=== PATIENT | female | born 1990 | race Caucasian/White ===

== ENCOUNTER 2016-09-27 08:48 | Emergency (ER) | payer MEDICAID, OTHER ==
[~2016-09-27] VITALS: Ht 172.7 cm; Wt 95.0 kg
[~2016-09-27 08:48] MED LIST: LAMO25 PO; LURA20TA PO; SULF1TAB23 PO
[2016-09-27 08:49] VITALS: BP 103/66; PULSE 87; RESP 14; TEMP 98.3; O2SAT 99
--- NOTE | 2016-09-27 09:19 | PD ---
HPI Chief Complaint: Complaint Time Seen by Provider: 09:01 Travel History International Travel<30 days: No Contact w/Intl Traveler<30days: No Traveled to known affect area: No History of Present Illness HPI 26-year-old female presents to emergency Department with 5 day history of dysuria and frequency in urination. Patient also reports vaginal discharge since yesterday. Patient states she did have unprotected sex over a week ago. Denies fever, chills, nausea, vomiting, or flank pain. She is unsure whether she could be . He states the vaginal discharge is foul smelling. Patient states she had some "leftover ciprofloxacin" which she started 2 days ago. Patient also took Azo for her dysuria. She has no known drug allergies. PFSH Past Medical History Hx Anticoagulant Therapy: No Anxiety: No Depression: Yes Cardiovascular Problems: No Chemotherapy: No Cerebrovascular Accident: No Diabetes: No Diminished Hearing: No Endocrine: No Genitourinary: No Immune Disorder: No Musculoskeletal: No Neurologic: No Respiratory: No Immunizations Current: No ?: Unknown LMP: 09/04/16 : 1 Para: 0 Dilation and Curettage (D&C): Yes (11/09/15) Past Surgical History Hysterectomy: No Other Surgery: No Social History Alcohol Use: No Tobacco Use: No Substance Use: No (DENIES) Allergies-Medications (Allergen,Severity, Reaction): Coded Allergies: No Known Allergies (Unverified , 08/12/16) Reported Meds & Prescriptions Reported Meds & Active Scripts Active Diflucan (Fluconazole) 150 Mg Tab 150 Mg PO ONCE Cephalexin 500 Mg Cap 500 Mg PO Q8H Sulfamethoxazole-Trimethoprim 800-160 Mg Tab 1 Tab PO BID Lamictal (Lamotrigine) 25 Mg Tab 25 Mg PO DAILY Reported Latuda (Lurasidone) 20 Mg Tab 20 Mg PO DAILY Review of Systems Except as stated in HPI: all other systems reviewed are Neg General / Constitutional: No: Fever Eyes: No: Visual changes HENT: No: Headaches Cardiovascular: No: Chest Pain or Discomfort Respiratory: No: Shortness of Breath Gastrointestinal: No: Abdominal Pain Genitourinary: Positive: Urgency, Frequency, Dysuria, Discharge, No: Pelvic Pain, Flank Pain, Vaginal Bleeding Musculoskeletal: No: Pain Skin: No Rash Neurologic: No: Weakness Psychiatric: No: Depression Endocrine: No: Polydipsia Hematologic/Lymphatic: No: Easy Bruising Physical Exam Narrative GENERAL: Patient appears no acute distress. SKIN: Warm and dry. Normal color. Turgor. No rash. HEAD: Atraumatic. Normocephalic. EYES: Pupils equal and round. No scleral icterus. No injection or drainage. ENT: No nasal bleeding or discharge. Mucous membranes pink and moist. Pharynx is clear. Airway is patent. NECK: Trachea midline. Supple and nontender. CARDIOVASCULAR: Regular rate and rhythm. RESPIRATORY: No accessory muscle use. Clear to auscultation. Breath sounds equal bilaterally. GASTROINTESTINAL: Abdomen soft, non-tender, nondistended. Hepatic and splenic margins not palpable. No CVA tenderness. GENITALIA: MUSCULOSKELETAL: Extremities without clubbing, cyanosis, or edema. No obvious deformities. NEUROLOGICAL: Awake and alert. No obvious cranial nerve deficits. Motor grossly within normal limits. Five out of 5 muscle strength in the arms and legs. Normal speech. PSYCHIATRIC: Appropriate mood and affect; insight and judgment normal. Data Data Last Documented VS Vital Signs Date Time Temp Pulse Resp B/P Pulse Ox O2 Delivery O2 Flow Rate FiO2 09/27/16 09:02 98 18 09/27/16 08:49 98.3 103/66 99 Orders Gc And Chlamydia Pcr (09/27/16 08:54) Wet Prep Profile (09/27/16 08:54) Urinalysis - C+S If Indicated (09/27/16 08:54) Ed Urine Pregnancytest Poc (09/27/16 08:54) Azithromycin Powd Pack (Zithromax Powd P (09/27/16 09:30) Lidocaine 1% Inj (50 Ml) (Xylocaine 1% I (09/27/16 09:30) Ceftriaxone Inj (Rocephin Inj) (09/27/16 09:30) Urine Culture (09/27/16 09:10) Labs Laboratory Tests Test 09/27/16 09/27/16 09:10 09:30 Urine Color DARK-YELLOW Urine Turbidity CLOUDY Urine pH 7.5 Urine Specific [place] 1.011 Urine Protein NEG mg/dL Urine Glucose (UA) NEG mg/dL Urine Ketones NEG mg/dL Urine Occult Blood TRACE Urine Nitrite POS Urine Bilirubin NEG Urine Urobilinogen 2.0 MG/DL Urine Leukocyte Esterase LARGE Urine RBC 13 /hpf Urine WBC 40 /hpf Urine Squamous Epithelial 5 /hpf Cells Urine Transitional Epithelial 1 /hpf Cells Urine Amorphous Sediment RARE Urine Bacteria MOD /hpf Urine Yeast (Budding) RARE Microscopic Urinalysis Comment CULTURE INDICATED Clue Cells (Wet Prep) NONE SEEN Vaginal Trichomonas (Wet Prep) NONE SEEN Vaginal Yeast (Wet Prep) PRESENT MDM Medical Decision Making Medical Screen Exam Complete: Yes Emergency Medical Condition: Yes Differential Diagnosis Urinary tract infection. Bacterial vaginosis. STD. GC/Chlamydia. Trichomoniasis. Narrative Course Patient is medically stable at time of exam. Urine is performed. Urinalysis is sent to the lab. Pelvic exam is performed with collection of GC chlamydia and Trichomonas wet prep swab. Patient is given Rocephin 1 g IM. Patient is given azithromycin 1000 mg by mouth 1. Urine is suggestive of urinary tract infection. Culture is pending. Wet prep shows candidiasis. GC chlamydia is pending. Patient will be continued on cephalexin 500 mg 3 times a day 7 days. Patient is given Diflucan 150 mg one now and repeat in one week if necessary. Patient is referred to the [facility] or [facility] for follow-up. Diagnosis Primary Impression: Urinary tract infection Qualified Code: N30.00 - Acute cystitis without hematuria Additional Impressions: Vaginal candidiasis Possible exposure to STD Referrals: [facility] Dept. Patient Instructions: Dysuria (ED), General Instructions, Sexually Transmitted Diseases (ED), Vulvovaginal Candidiasis (ED) Additional Instructions: Patient is given Rocephin 1 g IM. Patient is given azithromycin 1000 mg by mouth 1. Urine is suggestive of urinary tract infection. Culture is pending. Wet prep shows candidiasis. GC chlamydia is pending. Patient will be continued on cephalexin 500 mg 3 times a day 7 days. Patient is given Diflucan 150 mg one now and repeat in one week if necessary. Patient is referred to the [facility] or [facility] for follow-up. Med/Other Pt SpecificInfo: Prescription(s) given Scripts Fluconazole (Diflucan)150 Mg [id number] Mg PO ONCE #1 TAB Ref 1 Prov:Chanda Sofia DO 09/27/16 Cephalexin 500 Mg [id number] Mg PO Q8H #21 CAP Prov:Chanda Sofia DO 09/27/16 Disposition: 01 DISCHARGE HOME Condition: Stable Femi Tamez Sep 27, 2016 09:18
[2016-09-27] MEDS ORDERED: LIDOCAINE HCL 1% 50 ML VIAL IM ONE (09:30)
[2016-09-27] MEDS ORDERED: AZITHROMYCIN PWD FOR SUSP 1 GM PACKET PO ONE (09:30)
[2016-09-27 09:50] LABS: BACTERIA, URINE MOD /hpf; BLOOD, URINE TRACE (NEG); COMMENT (UR) CULTURE INDICATED; CULTURE IF INDICATED CULTURE INDICATED; GLUCOSE,URINE NEG (NEG); KETONE, URINE NEG (NEG); PH, URINE 7.5 (5.0-8.5); SQUAMOUS EPITHELIAL CELL URINE 5 /hpf (0-5); TRANSITIONAL EPI CELLS, URINE 1 /hpf; URINE COLOR DARK-YELLOW (YELLW/STRAW)
[2016-09-27 09:59] LABS: NITRITE,URINE POS (NEG)
[2016-09-27] MEDS ORDERED: CEPH500C PO (10:27)
[2016-09-27] MEDS ORDERED: DIFL150T PO (10:27)
[2016-09-27] MEDS ORDERED: PHEN0.4T PO (10:49)
[2016-09-27 14:10] LABS: CHLAMYDIA PCR NOT DETECTED (NOT DETECT); NEISSERIA PCR NOT DETECTED (NOT DETECT)
== END 2016-09-27 10:53 | disposition home or self-care (01) ==
LOC: NEPD 08:48
DX: N30.00 Acute cystitis without hematuria (principal); B37.3 Candidiasis of vulva and vagina
CPT/HCPCS: 81001; 84703; 87086; 87210; 87491; 87591; 96372; 99284; J0696

== ENCOUNTER 2017-01-10 19:49 | Emergency (ER) | payer SELFPAY ==
[~2017-01-10] VITALS: Ht 172.7 cm; Wt 94.0 kg
[~2017-01-10 19:49] MED LIST changes: +CEPH500C PO; +DIFL150T PO; +PHEN0.4T PO
[2017-01-10 19:50] VITALS: BP 116/63; PULSE 83; RESP 15; TEMP 97.9; O2SAT 97
--- NOTE | 2017-01-10 20:13 | PD ---
HPI Chief Complaint: ENT Complaint Time Seen by Provider: 19:57 Travel History International Travel<30 days: No Contact w/Intl Traveler<30days: No Traveled to known affect area: No History of Present Illness HPI Patient is a 26-year-old female presenting to the emergency department for evaluation of an impacted ear wax bilaterally. She states that she used a home. To remove the wax from her left year, she states that after she used it she had pain in her ear. She also reports that she has a pressure-like feeling in her ears. She denies any fevers, chills, nasal congestion, headache, neck pain, sore throat. She reports that her ears get impacted frequently. She has been using peroxide and a special school that she got from the pharmacy. She denies any other complaints at this time. She has no significant past medical history. PFSH Past Medical History Medical History: Denies Significant Hx Hx Anticoagulant Therapy: No Anxiety: No Depression: Yes Cardiovascular Problems: No Chemotherapy: No Cerebrovascular Accident: No Diabetes: No Diminished Hearing: No Endocrine: No Gastrointestinal Disorders: No Genitourinary: Yes (UTI's) Immune Disorder: No Implanted Vascular Access Dvce: No Musculoskeletal: No Neurologic: No Respiratory: No Immunizations Current: No ?: Not LMP: CURRENT : 1 Para: 0 Dilation and Curettage (D&C): Yes (11/09/15) Past Surgical History Hysterectomy: No Other Surgery: No Social History Alcohol Use: Yes (TWICE WEEKLY) Tobacco Use: No Substance Use: No (DENIES) Allergies-Medications (Allergen,Severity, Reaction): Coded Allergies: No Known Allergies (Unverified , 01/10/17) Reported Meds & Prescriptions Reported Meds & Active Scripts Active Pyridium (Phenazopyridine HCl) 100 Mg Tab 100 Mg PO Q8HR Diflucan (Fluconazole) 150 Mg Tab 150 Mg PO ONCE Cephalexin 500 Mg Cap 500 Mg PO Q8H Sulfamethoxazole-Trimethoprim 800-160 Mg Tab 1 Tab PO BID Lamictal (Lamotrigine) 25 Mg Tab 25 Mg PO DAILY Reported Latuda (Lurasidone) 20 Mg Tab 20 Mg PO DAILY Review of Systems Except as stated in HPI: all other systems reviewed are Neg HENT: Positive: Other (earwax) Physical Exam Narrative GENERAL: Well-developed, well-nourished, alert female. Resting in no acute distress. EARS: Bilateral pinnae and external canals appear within normal limits. Cerumen impaction bilaterally. Tympanic membranes are not visualized. SKIN: Warm and dry. HEAD: Normocephalic. EYES: No scleral icterus. No injection or drainage. NECK: Supple, trachea midline. No JVD or lymphadenopathy. CARDIOVASCULAR: Regular rate and rhythm without murmurs, gallops, or rubs. RESPIRATORY: Breath sounds equal bilaterally. No accessory muscle use. GASTROINTESTINAL: Abdomen soft, non-tender, nondistended. MUSCULOSKELETAL: No cyanosis, or edema. BACK: Nontender without obvious deformity. No CVA tenderness. Data Data Last Documented VS Vital Signs Date Time Temp Pulse Resp B/P (MAP) Pulse Ox O2 Delivery O2 Flow Rate FiO2 01/10/17 19:50 97.9 83 15 116/63 (80) 97 Room Air MDM Medical Decision Making Medical Screen Exam Complete: Yes Emergency Medical Condition: No Interpretation(s) Vital Signs Date Time Temp Pulse Resp B/P (MAP) Pulse Ox O2 Delivery O2 Flow Rate FiO2 01/10/17 19:50 97.9 83 15 116/63 (80) 97 Room Air Differential Diagnosis Otitis media versus otitis externa versus cerumen impaction versus other Narrative Course Patient is a 26 year old female that presented for evaluation of bilateral cerumen impaction. She had been using [id number] kit, this caused pain in the left ear canal. There is cerumen impaction bilaterally, attempted to remove cerumen with curette. At this point patient was encouraged to follow-up with your nose and throat or her primary care provider for irrigation. She was advised to ENT would be preferable. She was encouraged to return to emergency department for any new or worsening symptoms such as increased pain, fevers etc. A medical screening exam was performed: At the time of evaluation the presenting medical condition was determined not to be of an emergent nature. The patient was given the option of receiving additional care, but declined. Patient was given options for additional community resources from which to obtain care. The Patient Has Been advised to seek medical attention for their presenting complaint. The patient has been advised to return to the ER at any time if an emergent condition develops. Diagnosis Primary Impression: Encounter for medical screening examination Condition: Stable Sidra Jorge [facility] Jan 10, 2017 20:13
== END 2017-01-10 20:15 | disposition left against medical advice (07) ==
LOC: NEPK 19:49
DX: H61.23 Impacted cerumen, bilateral (principal)
CPT/HCPCS: 99281

== ENCOUNTER 2017-04-12 19:09 | Emergency (ER) | payer SELFPAY ==
[2017-04-12 20:56] LABS: AUTOMATED NEUTROPHIL # 9.5 TH/MM3 (1.8-7.7); BASOPHIL # 0.1 TH/MM3 (0-0.2); BASOPHIL % 0.4 % (0.0-2.0); EOSINOPHIL # 0.5 TH/MM3 (0-0.4); EOSINOPHIL % 3.6 % (0.0-4.0); HEMATOCRIT 41.5 % (35.0-46.0); HEMO FLAGS DIFF FINAL; HEMOGLOBIN 13.8 GM/DL (11.6-15.3); LYMPH % 17.8 % (9.0-44.0); LYMPHOCYTE # 2.4 TH/MM3 (1.0-4.8); MEAN CELL VOLUME 85.4 FL (80.0-100.0); MEAN CORPUSCULAR HEMOGLOBIN 28.3 PG (27.0-34.0); MEAN CORPUSCULAR HGB CONC 33.2 % (32.0-36.0); MONO % 6.9 % (0.0-8.0); MONOCYTE # 0.9 TH/MM3 (0-0.9); NEUT % 71.3 % (16.0-70.0); PLATELET COUNT 293 TH/MM3 (150-450); RED BLOOD COUNT 4.86 MIL/MM3 (4.00-5.30); RED CELL DISTRIBUTION WIDTH 13.8 % (11.6-17.2); WHITE BLOOD COUNT 13.3 TH/MM3 (4.0-11.0)
[2017-04-12 21:16] LABS: ALBUMIN 3.9 GM/DL (3.4-5.0); ANION GAP 5 MEQ/L (5-15); AST (GOT) 18 U/L (15-37); BLOOD UREA NITROGEN 13 MG/DL (7-18); CHLORIDE 105 MEQ/L (98-107); CREATININE 0.95 MG/DL (0.50-1.00); GLOMERULAR FILTRATION RATE 71 ML/MIN (>89); GLUCOSE,RANDOM 69 MG/DL (74-106); POTASSIUM 3.5 MEQ/L (3.5-5.1); SODIUM (NA) 138 MEQ/L (136-145)
[2017-04-12 21:17] LABS: ALT (GPT) 27 U/L (10-53)
[2017-04-12 21:19] LABS: ALKALINE PHOSPHATASE 120 U/L (45-117); TOTAL BILIRUBIN ADULT 0.2 MG/DL (0.2-1.0); TOTAL PROTEIN 7.7 GM/DL (6.4-8.2)
== END 2017-04-12 22:00 | disposition home or self-care (01) ==
LOC: NEPD 19:09
DX: J40 Bronchitis, not specified as acute or chronic (principal); F32.9 Major depressive disorder, single episode, unspecified; Z79.899 Other long term (current) drug therapy
CPT/HCPCS: 71046; 80053; 84703; 85025; 87081; 87804; 87804-59; 87880; 99284

== ENCOUNTER 2017-04-14 14:04 | Emergency (ER) | payer SELFPAY ==
[2017-04-14 14:55] LABS: AUTOMATED NEUTROPHIL # 15.1 TH/MM3 (1.8-7.7); BASOPHIL # 0.1 TH/MM3 (0-0.2); BASOPHIL % 0.3 % (0.0-2.0); EOSINOPHIL % 0.3 % (0.0-4.0); HEMATOCRIT 39.8 % (35.0-46.0); HEMO FLAGS DIFF FINAL; HEMOGLOBIN 13.5 GM/DL (11.6-15.3); LYMPH % 7.7 % (9.0-44.0); LYMPHOCYTE # 1.4 TH/MM3 (1.0-4.8); MEAN CELL VOLUME 86.3 FL (80.0-100.0); MEAN CORPUSCULAR HEMOGLOBIN 29.3 PG (27.0-34.0); MEAN PLATELET VOLUME 8.1 FL (7.0-11.0); MONO % 5.3 % (0.0-8.0); MONOCYTE # 0.9 TH/MM3 (0-0.9); NEUT % 86.4 % (16.0-70.0); PLATELET COUNT 268 TH/MM3 (150-450); RED BLOOD COUNT 4.61 MIL/MM3 (4.00-5.30); RED CELL DISTRIBUTION WIDTH 14.3 % (11.6-17.2); WHITE BLOOD COUNT 17.5 TH/MM3 (4.0-11.0)
[2017-04-14 15:05] LABS: BACTERIA, URINE FEW /hpf; BILIRUBIN, URINE NEG (NEG); BLOOD, URINE NEG (NEG); COMMENT (UR) CULT NOT INDICATED; CULTURE IF INDICATED CULT NOT INDICATED; GLUCOSE,URINE NEG (NEG); KETONE, URINE NEG (NEG); NITRITE,URINE NEG (NEG); PH, URINE 6.5 (5.0-8.5); SQUAMOUS EPITHELIAL CELL URINE 8 /hpf (0-5); URINE COLOR LIGHT-YELLOW (YELLW/STRAW); URINE LEUKOCYTE ESTERASE SMALL (NEG)
[2017-04-14 15:19] LABS: ANION GAP 7 MEQ/L (5-15); BICARBONATE 26.8 MEQ/L (21.0-32.0); BLOOD UREA NITROGEN 10 MG/DL (7-18); CALCIUM 9.1 MG/DL (8.5-10.1); CHLORIDE 104 MEQ/L (98-107); CREATININE 0.92 MG/DL (0.50-1.00); GLOMERULAR FILTRATION RATE 74 ML/MIN (>89); GLUCOSE,RANDOM 99 MG/DL (74-106); POTASSIUM 4.1 MEQ/L (3.5-5.1); SODIUM (NA) 138 MEQ/L (136-145)
[2017-04-14] MEDS: RESP: ALBUTEROL 2.5 MG/IPRATROPIUM 0.5 MG NEB (SCH) INH (15:44)
[2017-04-14] MEDS: AZITHROMYCIN 250 MG TAB PO (15:46)
[2017-04-14] MEDS: IBUPROFEN 800 MG TAB PO (15:46)
[2017-04-14] MEDS: predniSONE 20 MG TAB PO (16:09)
[2017-04-14] MEDS: SPACER/DEVICE FOR MDI INH (16:36)
== END 2017-04-14 17:24 | disposition home or self-care (01) ==
LOC: NEPD 14:04
DX: J18.1 Lobar pneumonia, unspecified organism (principal); F32.9 Major depressive disorder, single episode, unspecified
CPT/HCPCS: 71046; 80048; 81001; 84703; 85025; 94150; 94664; 99284